=== PATIENT | male | born 1980 | race Two or more races ===

== ENCOUNTER 2023-03-16 13:36 | Emergency (ER) | payer MEDICAID ==
[~2023-03-16] VITALS: Ht 175.3 cm; Wt 90.7 kg
[2023-03-16 13:42] VITALS: BP 122/73; TEMP 98.2
[2023-03-16 16:07] VITALS: O2SAT 99
== END 2023-03-16 16:08 | disposition home or self-care (01) ==
LOC: ER 13:38
DX: U07.1 COVID-19 (principal); I10 Essential (primary) hypertension; E11.9 Type 2 diabetes mellitus without complications
CPT/HCPCS: 99283; 87426; C9803